=== PATIENT | female | born 1975 | race Caucasian/White ===

== ENCOUNTER 2017-08-21 09:15 | Inpatient (IN) | payer BC ==
[~2017-08-21 09:15] MED LIST: Dexamethasone 4 MG/ML SDV ONE; Glycopyrrolate 0.2 MG/ML 5 ML MDV ONE; Neostigmine Methylsulfate 1 MG/ML 5 ML Syringe ONE; Ondansetron 4 MG/2 ML SDV ONE; Propofol 200 MG/20 ML SDV ONE; Rocuronium 50 MG/5 ML Vial ONE; Succinylcholine 200 MG/10 ML MDV ONE
[2017-08-21] MEDS ORDERED: Acetaminophen 500 MG Tab PO ONE (10:00)
[2017-08-21] MEDS ORDERED: Celecoxib 200 MG Cap PO ONE (10:00)
[2017-08-21] MEDS: Dextrose 5%-Lactated Ringers 1,000 ML IV SCH ×2 (10:35→14:46)
[2017-08-21] MEDS ORDERED: Potassium Chloride 20 MEQ, Lidocaine 1% 2 ML in Sodium Chloride 0.9% 100 ML IV ONE (10:45)
[2017-08-21] MEDS ORDERED: Meropenem 500 MG SDV ONE (10:52)
[2017-08-21] MEDS ORDERED: cefOXitin 2 GM in Sodium Chloride 0.9% 50 ML IV ONE (11:15)
[2017-08-21] MEDS ORDERED: HYDROmorphone/Normal Saline 15 MG/30 ML PCA IV PRN (11:20)
[2017-08-21] MEDS ORDERED: Naloxone 0.4 MG/ML SDV IVPUSH PRN (11:20)
[2017-08-21] MEDS ORDERED: fentaNYL 100 MCG/2 ML SDV ONE (13:00)
[2017-08-21] MEDS ORDERED: hydrOXYzine HCl 25 MG Tab PO PRN (15:34)
[2017-08-21] MEDS ORDERED: Ondansetron 4 MG/2 ML SDV IV PRN (15:34)
[2017-08-21] MEDS ORDERED: hydrOXYzine HCl 100 MG/2 ML SDV IM PRN (15:34)
[2017-08-21] MEDS ORDERED: Belladonna Alkaloids/Opium 16.2-30 MG Supp RECTAL PRN (15:36)
[2017-08-21] MEDS: Dextrose 5%-Lact Ringers w/KCl 1,000 ML IV SCH ×2 (16:26→22:29)
[2017-08-21] MEDS: Pantoprazole 40 MG Vial IV SCH (16:28)
[2017-08-21] MEDS ORDERED: POTASSIUM PHOSPHATES IV SCH ×2 (17:00)
[2017-08-21] MEDS ORDERED: LACTATED RINGERS IV SCH ×2 (17:00)
[2017-08-21] MEDS ORDERED: DEXTROSE 5% IV SCH ×2 (17:00)
[2017-08-21] MEDS: cefOXitin 2 GM in Sodium Chloride 0.9% 50 ML IV SCH (17:01)
[2017-08-22] MEDS: cefOXitin 2 GM in Sodium Chloride 0.9% 50 ML IV SCH ×3 (01:03→13:26)
[2017-08-22] MEDS: Dextrose 5%-Lact Ringers w/KCl 1,000 ML IV SCH (05:19)
[2017-08-22] MEDS ORDERED: Cetirizine 10 MG Tab PO PRN (08:03)
[2017-08-22] MEDS: Hydrochlorothiazide/Triamterene 25-37.5 MG Cap PO SCH (09:25)
[2017-08-22] MEDS: Potassium Phosphates 20 MMOLE in Sodium Chloride 0.9% 250 ML IV SCH ×3 (10:12→17:18)
[2017-08-22] MEDS: Pantoprazole 40 MG Vial IV SCH (17:17)
[2017-08-23] MEDS: Dextrose 5%-Lact Ringers w/KCl 1,000 ML IV SCH ×2 (00:17→22:44)
[2017-08-23] MEDS: Bisacodyl 5 MG Tab PO SCH ×2 (08:38→22:14)
[2017-08-23] MEDS: Hydrochlorothiazide/Triamterene 25-37.5 MG Cap PO SCH (08:39)
--- NOTE | 2017-08-23 08:39 | PN ---
DATE OF SERVICE: 08/23/2017 SUBJECTIVE: Shala is postop day 2. She is sitting up in the chair. Potassium this morning was 3.2. She has been afebrile. CJ drains have put out 760 mL of a light pink drainage. Piper catheter was removed this a.m. and she has not voided yet. Labs this morning revealed a potassium of 3.2, phosphorus 2.3 and magnesium 1.7. REVIEW OF SYSTEMS: Remainder of review of systems negative for any pertinent positives and negatives. OBJECTIVE: GENERAL: Shala Archuleta is a pleasant 42-year-old female. She is sitting up in the chair as stated, alert, orientated, temp max of 100. VITAL SIGNS: Currently her TPR is 99,3, 82, 18, blood pressure 120/61. HEENT: Negative. NECK: Supple. HEART: Regular rate and rhythm. LUNGS: Clear. ABDOMEN: Dressings dry and intact. CJ drains x2 intact. Abdominal binder has been on. EXTREMITIES: Without peripheral edema. ASSESSMENT: Exploratory laparotomy with lysis of adhesions, total abdominal hysterectomy, bilateral salpingo-oophorectomy, suprapubic urethropexy, transabdominal colpopexy and mobilization of omentum into pelvis for dysfunctional uterine bleeding, stress urinary incontinence, uterine and vaginal prolapse extensive intraabdominal and extensive pelvic adhesions. Date of surgery 08/21/2017. Surgeon, Jw Healy MD. PLAN: 1. Full liquid diet. 2. Advance to regular diet as tolerated, full liquid diet at noon. 3. Check CBC, CMP and phos in a.m. 4. Dulcolax 20 mg tablets p.o. b.i.d. discontinue when starting to have bowel movements. 5. Magnesium sulfate 2 g IV q.6 hours x72 hours. 6. K-Phos 75 millimoles IV today. 7. Good pulmonary toilet encouraged. 8. We will evaluate p.r.n. or in a.m. Dressing off. May shower. Brittney Alberto PA-C /[id number]
[2017-08-23] MEDS: Potassium Phosphates 25 MMOLE in Sodium Chloride 0.9% 250 ML IV SCH ×3 (08:43→17:35)
[2017-08-23] MEDS: Magnesium Sulfate/Water 2 GM in Premix Bag 1 BAG IV SCH ×3 (10:15→22:14)
--- NOTE | 2017-08-23 12:42 | PN ---
DATE OF SERVICE: 08/22/2017 The patient is one day status post a total abdominal hysterectomy, left salpingo- oophorectomy, leaving the right ovary in place, along with a transabdominal colpopexy and suprapubic urethropexy. Clinically, she has done well. She is having bladder spasms, but these seem to be resolving. Urine output has been satisfactory. Labs look satisfactory. Potassium is up to 3.5. We need to back down the IV rate. We will leave the Piper catheter in until tomorrow. She will be offered some clear liquids. Her potassium is 3.5 and phosphate is marginally low, so we will supplement that with some K-Phos today. Otherwise, maximize activity and work with pulmonary toilet. Jw Healy MD /[id number]
[2017-08-23] MEDS: Pantoprazole 40 MG Vial IV SCH (17:33)
[2017-08-24] MEDS: Acetaminophen 325 MG Tab PO PRN ×4 (03:30→23:54)
[2017-08-24] MEDS: Magnesium Sulfate/Water 2 GM in Premix Bag 1 BAG IV SCH ×4 (05:00→21:46)
[2017-08-24] MEDS ORDERED: Acetaminophen/oxyCODONE 325-5 MG Tab PO PRN (07:39)
[2017-08-24] MEDS: Potassium Chloride 20 MEQ Tab.ER PO SCH ×3 (08:52→16:08)
--- NOTE | 2017-08-24 09:11 | OR ---
DATE OF PROCEDURE: 08/21/2017 PREOPERATIVE DIAGNOSES: 1. Menometrorrhagia. 2. Stress urinary incontinence. 3. Uterovaginal prolapse. POSTOPERATIVE DIAGNOSES: 1. Menometrorrhagia. 2. Stress urinary incontinence. 3. Uterovaginal prolapse. 4. Extensive intraabdominal pelvic adhesions. OPERATIVE PROCEDURE: Exploratory laparotomy with lysis of extensive adhesions: 1. Total abdominal hysterectomy with left salpingo-oophorectomy (right ovary and tube left in place) with a concurrent suprapubic urethropexy (89413). 2. Transabdominal colpopexy (66323). 3. Mobilization of omentum into pelvis to displace pelvic and abdominal wall from underlying viscera to limit recurrent adhesion formation (29722). ANESTHESIA: General. FINGER GRIP MACHINE OPERATOR: Brittney Alberto PA-C. INDICATION FOR PROCEDURE: This is a 42-year-old female presenting with quite severe menometrorrhagia. This has been refractory to any sort of medical management. She also has some stress urinary incontinence and a significant descent of the uterus at that time of the pelvic exam. The plan will be to proceed with a total abdominal hysterectomy, and she would like to have one of the ovaries left in place, unless there is specific indication for bilateral salpingo-oophorectomy, such as extensive endometriosis. We plan concurrent suprapubic urethropexy, and to limit subsequent problems with prolapse of the vaginal structure, a transabdominal colpopexy with mesh is to be undertaken. Potential risks including bleeding, infection, injury to the GI tract or urinary tract problems with urinary retention and/or continued incontinence following the urethropexy, as well as possibility of cardiopulmonary, septic, or hemorrhagic complications leading to were all discussed, and the patient wishes to proceed. DETAILS OF PROCEDURE: The patient was taken to the operating room, placed in a supine position. After general endotracheal anesthesia was induced, a Piper catheter was inserted, and an abdominal and vaginal prep was performed. The patient had a previous lower midline incision, this was reused. In this case, it was extended somewhat both inferiorly and superiorly to the previous site of incision running from the umbilicus to the pubis. Our original intention was to do a Pfannenstiel incision, but with the patient relaxed, there appeared to be a marked weakness at the level of the suprapubic aspect of the previous midline incision, which, with an intersecting incision, would put the patient at extremely high risk for hernia development. Given this, the above incision was used. After the incision was carried out through the skin and subcutaneous tissue, the midline fascia and peritoneum, quite extensive adhesions were noted. The patient did have a previous appendectomy with postoperative pelvic abscess. After these adhesions between the viscera and omentum and the pelvic and abdominal fernandez were all taken down, this allowed upward retraction of the viscera to expose the pelvic structures. The patient had bilateral normal-appearing ovaries. The right ovary was actually somewhat adherent to the right pelvic sidewall, which would keep it away from the vaginal cuff to limit problems with dyspareunia postoperatively. Given this, the left tube and ovary were excised by division of the infundibulopelvic ligament, and on the right side, the broad ligament was divided, along with the uterine tube, leaving the right tube and ovary in place. On each side then, 2 additional firings of duarte were taken down to the level of the cardinal ligaments. The latter were then clamped, divided, and suture-ligated with #1 Vicryl stitch. At that point the uterosacral ligaments were clamped bilaterally and initially suture-ligated with #1 Vicryl stitch. The vaginal cuff was then developed with electrocautery, and the specimen consisting of the left tube and ovary and the uterus was delivered from the field. The 2 sutures used for the uterosacral ligaments were then continued towards the midline on each side, thus closing the vaginal cuff. At this point, after irrigating the pelvis with a meropenem-containing saline solution, attention was taken to the transabdominal colpopexy. An incision over the peritoneum over the sacral promontory was then made, and the peritoneum was then tunneled with Pean clamp downwards inferiorly toward the pelvis, being sure to avoid incorporating the sigmoid colon and rectal mesentery into this dissection. A 6 cm x 2 cm segment of Prolene mesh was then initially fixed to the posterior aspect of the vaginal cuff with interrupted 3-0 Prolene stitch, and then the vaginal cuff apex was stapled to the mesh with a TA-30 stapler. The mesh was then pulled through the retroperitoneal tunnel, and after pulling the mesh up in a manner such as to elevate the vaginal cuff structure satisfactorily, this was stapled to the sacral promontory with titanium tacking screws. The peritoneum over the mesh was then closed with some 3-0 Vicryl stitch. At the point, the pelvis was once again irrigated with an antibiotic-containing saline solution. The retropubic plane was developed bluntly. The Piper catheter was then brought down per the circulating nurse, to be sure of the level of the of the urethrovesical junction, and at a point 2 to 3 cm lateral on each side, [id number] stitches of #1 Vicryl stitch were placed in perivaginal fascia. Once these were in placed, and they were elevated, there was a palpably adequate elevation of the urethrovesical junction. Both sutures were then taken through the periosteum overlying the pubic bone and pulled up and tied, thus completing the urethropexy. At this point, no further intraperitoneal problems were noted. The abdomen was once again irrigated with antibiotic-containing saline solution. A 10-Argentine round Sharif-Mahoney drain was placed through a stab wound in the right side of the abdomen, taken down into the depths of the pelvis. Following this, the omentum was then mobilized downward intact to the pelvic sidewalls, as well as the area posterior to the urinary bladder, to help displace the viscera from the pelvic and abdominal fernandez and limit subsequent adhesion formation. The midline peritoneum was then approximated from the semilunaris downward with #2 Vicryl stitch, as was the anterior fascia. Subcutaneous tissue was then drained with a 10-Argentine round Sharif-Mahoney drain and then closed with 2 layers of 3-0 and 4-0 Vicryl stitch deep and duarte for the skin. The drain was affixed with some 3-0 Vicryl stitch and a dressing applied. The patient was taken to the recovery room in satisfactory condition. There were no evident complications. Physician business office assistant, Brittney Alberto PA-C, played an essential role in assisting in this case, helping to position the patient, retract structures as needed, as well as suturing, cutting the sutures and stapling when indicated. Her presence improved patient's safety and decreased operative time. Jw Healy MD /[id number]
[2017-08-24] MEDS: Bisacodyl 5 MG Tab PO SCH (09:36)
[2017-08-24] MEDS: Hydrochlorothiazide/Triamterene 25-37.5 MG Cap PO SCH (10:31)
--- NOTE | 2017-08-24 11:56 | PN ---
DATE OF SERVICE: 08/24/2017 SUBJECTIVE: Shala is postop day 3. She states her pain is controlled. She has been up, ambulating. She did have a bowel movement yesterday. No fever. REVIEW OF SYSTEMS: Remainder of review of systems is negative for any pertinent positives and negatives. OBJECTIVE: GENERAL: Shala Archuleta is a pleasant 42-year-old female. VITAL SIGNS: TPR is 98.1, 73, 18, blood pressure 130/74. HEENT: Negative. NECK: Supple. HEART: Regular rate and rhythm. LUNGS: Clear. ABDOMEN: Dressings dry and intact. Abdominal binder is on. EXTREMITIES: Without peripheral edema. ASSESSMENT: Exploratory laparotomy with lysis of adhesions, total abdominal hysterectomy, bilateral salpingo-oophorectomy, suprapubic urethropexy, transabdominal colpopexy, and mobilization of omentum into pelvis for dysfunctional uterine bleeding, stress urinary incontinence, uterine and vaginal prolapse, extensive intraabdominal and extensive pelvic adhesions. Date of surgery 08/21/2017. Surgeon is Jw Healy M.D. PLAN: 1. Discontinue NURSE ANESTHESIA PROGRAM DIRECTOR and continuous pulse ox. 2. Percocet 5/325 mg 1 to 2 tabs q.4 hours p.r.n. pain. 3. Klor-Con 20 mEq p.o. t.i.d. 4. IV saline lock. 5. Good pulmonary toilet encouraged. 6. We will evaluate p.r.n. or in a.m. Brittney Alberto PA-C /[id number]
[2017-08-24] MEDS ORDERED: Pantoprazole 40 MG Tab.CR PO SCH (16:30)
[2017-08-25] MEDS: Hydrochlorothiazide/Triamterene 25-37.5 MG Cap PO SCH (08:26)
[2017-08-25] MEDS: Potassium Chloride 20 MEQ Tab.ER PO SCH (08:26)
[2017-08-25] MEDS: Acetaminophen 325 MG Tab PO PRN (08:28)
--- NOTE | 2017-08-25 08:49 | DISCH ---
ADMISSION DIAGNOSES: Menometrorrhagia, stress urinary incontinence, uterovaginal prolapse, extensive intraabdominal pelvic adhesions. DISCHARGE DIAGNOSES: Exploratory laparotomy with lysis of extensive adhesions in place with a concurrent suprapubic urethropexy, transabdominal colpopexy and mobilization of the omentum into the displaced pelvic and abdominal wall from underlying viscera to limit recurrent adhesive formation. Date of surgery 08/21/2017. HISTORY: Shala Archuleta is a 42-year-old female presenting with quite severe menometrorrhagia. After preoperative evaluation and discussion of possible risks and possible complications, she wished to proceed with surgical procedure. HOSPITAL COURSE: Shala had her surgery on 08/21/2017. She had no operative complications. On postop day 1, pain was well managed. She was having some bladder spasms. This was treated. Potassium was 3.5 and she had that replaced. On postop day #2, she was started on a full-liquid diet, advanced to regular diet as tolerated. She received K-Phos 75 millimoles and magnesium was replaced and she was started on bowel stimulation. On postop day #3, she was changed to oral pain medication. Her activity was good and she was ready to be discharged without any complications on 08/25/2017. PHYSICAL EXAMINATION: GENERAL: Shala Archuleta is a 42-year-old female. VITAL SIGNS: TPR 98, 73, 18, blood pressure 143/94. HEENT: Negative. NECK: Supple. HEART: Regular rate and rhythm. LUNGS: Clear. ABDOMEN: Incision looks good 4x4s over the 2 CJ drains that were discontinued. Abdominal binder on. EXTREMITIES: Without peripheral edema. DISPOSITION: Discharged to home. CONDITION: Stable and improving. FOLLOWUP APPOINTMENT: With Brittney Alberto PA-C on 09/05/2017 at 9:00 a.m. HOME MEDICATIONS: Percocet 5/325 mg 1 to 2 tablets q. 4 hours #40, Zyrtec 10 mg p.o. daily, triamcinolone acetonide 0.1% cream 15 g topical b.i.d., and hydrochlorothiazide 37.5/25 mg 1 tablet daily. DISCHARGE DIET: Usual diet as tolerated. Drink 8 to 10 glasses of water a day. ACTIVITY: No lifting greater than 10 pounds for 6 weeks. Driving, do not drive on pain medication. Shower/bathing, may shower. Keep operative site clean and dry. Wear abdominal binder for 2 weeks and then as tolerated. Notify provider of fever, increased pain, drainage, nausea or vomiting. SPECIAL INSTRUCTIONS: Use incentive spirometer 10 times every hour while awake.
== END 2017-08-25 11:30 | disposition home or self-care (01) | DRG 513 ==
LOC: JP.SDS 09:15 → JP.SDSSCHI 09:15 → EDSTATUS 09:30 → JP.MS 14:30
PROVIDERS: ADMIT Surgery; ATTEND Surgery
PROC: 0UT90ZZ Resection of Uterus, Open Approach (ICD-10-PCS; principal; 2017-08-21)
PROC: 0UTC0ZZ Resection of Cervix, Open Approach (ICD-10-PCS; 2017-08-21)
PROC: 0DNW0ZZ Release Peritoneum, Open Approach (ICD-10-PCS; 2017-08-21)
PROC: 0UT10ZZ Resection of Left Ovary, Open Approach (ICD-10-PCS; 2017-08-21)
PROC: 0UT60ZZ Resection of Left Fallopian Tube, Open Approach (ICD-10-PCS; 2017-08-21)
PROC: 0TSD0ZZ Reposition Urethra, Open Approach (ICD-10-PCS; 2017-08-21)
PROC: 0USG0ZZ Reposition Vagina, Open Approach (ICD-10-PCS; 2017-08-21)
DX: N81.4 Uterovaginal prolapse, unspecified (principal); N39.3 Stress incontinence (female) (male); N92.1 Excessive and frequent menstruation with irregular cycle; K66.0 Peritoneal adhesions (postprocedural) (postinfection); Z88.1 Allergy status to other antibiotic agents; Z88.2 Allergy status to sulfonamides; Z87.891 Personal history of nicotine dependence
CPT/HCPCS: 36415; 80048; 80053; 83735; 84100; 85027; 88307; 94762; A9270-GY; C1781; C9113; J0330; J0694; J1100; J1170; J2185; J2405; J2704; J2710; J3010; J3475; J3480; J3490; J7030; J7042; J7050

== ENCOUNTER 2017-11-16 06:21 | Day surgery (SDC) | payer BC ==
[2017-11-16] MEDS ORDERED: Dextrose 5%-Lactated Ringers 1,000 ML IV SCH (08:00)
[2017-11-16] MEDS ORDERED: cefOXitin 2 GM in Premix Bag 1 BAG IV ONE (08:00)
[2017-11-16] MEDS ORDERED: cefOXitin 2 GM in Sodium Chloride 0.9% 50 ML IV ONE (08:00)
[2017-11-16] MEDS ORDERED: Midazolam 1 MG/ML 2 ML SDV ONE (08:51)
[2017-11-16] MEDS ORDERED: Propofol 200 MG/20 ML SDV ONE ×2 (08:51→09:18)
[2017-11-16] MEDS ORDERED: fentaNYL 100 MCG/2 ML SDV ONE (08:51)
[2017-11-17] MEDS ORDERED: Dextrose 5%-Lactated Ringers 1,000 ML IV SCH (07:45)
[2017-11-17] MEDS ORDERED: cefOXitin 2 GM in Sodium Chloride 0.9% 50 ML IV ONE (08:00)
--- NOTE | 2017-11-20 09:11 | OR ---
DATE OF PROCEDURE: 11/16/2017 PREOPERATIVE DIAGNOSES: 1. Eroded foreign body on apex of vaginal cuff. 2. History of recurrent urinary tract infections. POSTOPERATIVE DIAGNOSES: 1. Eroded duarte with attached mesh on apex of vaginal cuff. 2. History of recurrent urinary tract infections. OPERATIVE PROCEDURES: 1. Pelvic exam under anesthesia with removal of duarte and attached portion of mesh (85134). 2. Straight catheterization for collection of urine for culture and sensitivity ([id number]). ANESTHESIA: IV sedation. INDICATIONS FOR PROCEDURE: The patient is status post total abdominal hysterectomy, along with a transabdominal colpopexy and urethropexy this past August. During intercourse, her was noted to have a sharp sensation, and pelvic examination done yesterday in the clinic showed what appeared to be a staple that had eroded into the apex of the vaginal cuff, more or less on the right upper corner of the vaginal cuff. The plan was to proceed with removal of this with IV sedation. The potential risks of the procedure including bleeding, infection, and possible additional problems with foreign bodies migrating over time were reviewed with the patient, and she wishes to proceed. Additionally, she has had some problems with recurrent UTIs and will obtain a straight cath in a sterile setting for urinalysis and C and S. DETAILS OF PROCEDURE: The patient was taken to the operating room and placed in a lithotomy position. IV sedation was administered, after which the perineal and the vaginal areas were then prepped and draped. Using a straight catheter and sterile technique, the bladder was then emptied, and a portion of the urine, which was otherwise clear, was sent for urinalysis and culture and sensitivity. Following this, the vaginal speculum was placed in the area of the duarte that could be identified. As one pulled down on these, the staple was attached to a small amount of polypropylene mesh. This was excised, along with the staple, and the specimen then delivered from the field. Careful inspection revealed no additional identifiable foreign bodies. The mucosa over the area where the mesh had been divided appeared to have prolapsed over that, and this will then hopefully heal up secondarily with the polypropylene being the type of mesh that typically would be relatively resistant to infection. Minimal bleeding was noted, and none was present at the conclusion of the procedure. The patient was taken to the recovery room in satisfactory condition. Jw Healy MD /[id number]
== END 2017-11-16 11:00 | disposition home or self-care (01) ==
LOC: JP.SDS 06:21
PROVIDERS: ATTEND Surgery
DX: T83.711A Erosion of implanted vaginal mesh to surrounding organ or tissue, initial encounter (principal); I10 Essential (primary) hypertension; K21.9 Gastro-esophageal reflux disease without esophagitis; E03.9 Hypothyroidism, unspecified; E66.9 Obesity, unspecified; Z88.2 Allergy status to sulfonamides; Z88.8 Allergy status to other drugs, medicaments and biological substances
CPT/HCPCS: 57415; 87086; 88300; J0694; J2250; J2704; J3010; J7042; J7050